=== PATIENT | male | born 1980 | race African-American/Black ===

== ENCOUNTER 2024-04-16 23:50 | Inpatient (IN) | payer OTHER ==
[2024-04-17 00:13] VITALS: BMI 35.6
[2024-04-17] MEDS ORDERED: Ondansetron ODT 4 MG TAB SL PRN (00:45)
[2024-04-17] MEDS ORDERED: Ondansetron PF 4 MG/2 ML Vial IVP PRN (00:45)
[2024-04-17 04:26] LABS: #Basophils Less than 0.03 10x3/uL (0.0-0.2); %Basophils 0.3 % (0.0-1.0); %Eosinophils 0.5 % (0.0-10.0); %Lymphocytes 24.7 % (21.0-51.0); %Neutrophils 63.3 % (42.0-75.0); Hematocrit 40.5 % (42.0-52.0); Hemoglobin 13.4 g/dL (14.0-18.0); Mean Corpuscular HGB CONC 33.1 g/dL (32.0-36.0); Mean Corpuscular Hemoglobin 28.9 pg (27.0-31.0); Mean Corpuscular Volume 87.5 fL (78.0-98.0); Mean Platelet Volume 9.9 fL (7.4-10.4); Platelet Count 220 10x3/uL (130-400); RBC Distribution Width 11.6 % (11.5-14.5); Red Blood Cell (RBC) Count 4.63 mill/uL (4.70-6.10)
[2024-04-17 04:42] LABS: Hemoglobin A1c 4.8 % (4.0-6.0)
[2024-04-17 04:45] LABS: Anion Gap 12 mmol/L (10-20); BUN (Urea Nitrogen) 9 mg/dL (8.9-20.6); Calc. Creatinine Clearance 143 mL/min (70-130); Calcium 9.6 mg/dL (7.8-10.44); Carbon Dioxide 24 mmol/L (22-29); Cardiac Risk 4.6 (Less than 4.5); Chloride 104 mmol/L (98-107); Cholesterol 153 mg/dl (< 200 Desired); Estimated GFR 87; Glucose 98 mg/dL (70-105); HDL Cholesterol 33 mg/dL (>60 Neg Risk); LDL Cholesterol, Calculated 97 mg/dL; Potassium 3.8 mmol/L (3.5-5.1); Sodium 136 mmol/L (136-145); Triglycerides 115 mg/dL (Less than 150)
[2024-04-17] MEDS: Aspirin 81 mg Enteric Coated Tablet PO SCH (10:21)
[2024-04-17] MEDS ORDERED: Magnevist 469MG/ML 20 ML VIAL ONE (12:45)
[2024-04-17] MEDS: Acetaminophen 325 MG TAB PO PRN (18:03)
[2024-04-17] MEDS: Atorvastatin Calcium 40 MG TAB PO SCH (20:26)
[2024-04-19 15:07] LABS: INR-International Normal Ratio 1.1; PTT 25.4 sec (22.9-36.1); Prothrombin Time 13.9 sec (12.0-14.7)
[2024-04-19 15:08] LABS: D-Dimer Test 0.36 mcg/mL (0.27-0.43)
[2024-04-19 19:37] VITALS: TEMP 98.2
[2024-04-20 07:57] VITALS: BP 120/79
[2024-04-20] MEDS ORDERED: PROPOFOL 200 MG/20 ML VIAL ONE (08:37)
[2024-04-20] MEDS ORDERED: Lidocaine 1% PF 5 ML VIAL ONE (08:37)
[2024-04-20] MEDS: Apixaban 5 MG TAB PO SCH (11:52)
[2024-04-20 12:46] LABS: Cardiolipin IgA Ab 7.3 APL-U/mL (<14 Negative); Cardiolipin IgG Ab 1.9 GPL-U/mL (<10 Negative); Cardiolipin IgM Ab Less than 0.9 MPL-U/mL (<10 Negative); EliA APS New Method **** NEW METHOD ****
[2024-04-20 13:50] LABS: SARS-CoV-2 N1 Negative; SARS-CoV-2 N2 Negative; SARS-CoV-2 RNAse P1 Positive
[2024-04-20] MEDS ORDERED: Apixaban 5 MG TAB PO SCH (21:00)
== END 2024-04-20 12:13 | disposition home or self-care (01) | DRG 69 ==
LOC: 2SE 23:50 → UNDOADMIN 23:50 → INTOOBSV 04-17 01:17 → 2SE 04-17 01:17 → OBSVTOIN 04-17 17:56
PROVIDERS: ADMIT Internal Medicine; ATTEND Internal Medicine
PROC: B24BZZ4 Ultrasonography of Heart with Aorta, Transesophageal (ICD-10-PCS; principal; 2024-04-20)
DX: G45.9 Transient cerebral ischemic attack, unspecified (principal); Z79.82 Long term (current) use of aspirin; Z88.5 Allergy status to narcotic agent
CPT/HCPCS: 36415; 70450; 70553; 76377; 80048; 80061; 83036; 83090; 85025; 85300; 85303; 85305; 85307; 85598; 85610; 85730; 86147; 87635; 93306; 93312; A9579; G0378; J2704